=== PATIENT | female | born 1955 | race Caucasian/White ===

== ENCOUNTER 2016-09-05 10:49 | Emergency (ER) | payer BC ==
[2016-09-05 11:35] VITALS: BP 146/92
--- NOTE | 2016-09-05 11:45 | UC ---
Complaint Female HPI - HPI Summary HPI Summary: 61 yo female with dysuria and urgency and frequency x 2 days no f/c no back or abd pain no n/v - History Of Current Complaint Chief Complaint: UCGU Stated Complaint: CLOUDY URINE Time Seen by Provider: 09/05/16 11:44 Hx Last Menstrual Period: NA Onset/Duration: Gradual Onset, Lasting Days Timing: Intermittent, Lasting Seconds Severity Initially: Mild Severity Currently: None Pain Intensity: 0 Pain Scale Used: 0-10 Numeric Character: Burning Aggravating Factor(s): Urination Associated Signs And Symptoms: Negative: Fever, Back Pain, Vaginal Bleeding/ Discharge, Vaginal Discharge, Nausea, Vomiting(# Of Episodes =), Genital Swelling, Genital Blisters, Retained Foregin Body (Specify) Related Hx: Similar Episode/Dx as: - uti - Allergies/Home Medications Allergies/Adverse Reactions: Allergies Allergy/AdvReac Type Severity Reaction Status Date / Time No Known Allergies Allergy Verified 07/23/15 15:13 PMH/Surg Hx/FS Hx/Imm Hx Previously Healthy: Yes Cancer History Of: Denies: Breast Cancer - Surgical History Surgical History: None - Family History Known Family History: Positive: Blood Disorder - anemia Negative: Cardiac Disease, Hypertension, Diabetes - Social History Alcohol Use: None Substance Use Type: None Smoking Status (MU): Never Smoked Tobacco Review of Systems Constitutional: Negative Skin: Negative Eyes: Negative ENT: Negative Respiratory: Negative Cardiovascular: Negative Gastrointestinal: Negative Genitourinary: Dysuria, Frequency, Urgency Motor: Negative Neurovascular: Negative Musculoskeletal: Negative Neurological: Negative Psychological: Negative All Other Systems Reviewed And Are Negative: Yes Physical Exam Triage Information Reviewed: Yes Appearance: Well-Appearing, No Pain Distress, Well-Nourished Vital Signs: Initial Vital Signs Temp 98.2 F 09/05/16 11:33 Pulse 78 09/05/16 11:33 Resp 16 09/05/16 11:33 BP 146/92 09/05/16 11:33 Pulse Ox 100 09/05/16 11:33 Vital Signs Reviewed: Yes Eyes: Positive: Conjunctiva Clear ENT: Positive: Hearing grossly normal. Negative: Nasal congestion, Nasal drainage, Tonsillar exudate, Trismus, Muffled/hoarse voice Neck: Positive: Supple, Nontender Respiratory: Positive: Lungs clear, Normal breath sounds, No respiratory distress Cardiovascular: Positive: RRR, No Murmur Abdomen Description: Positive: Nontender, No Organomegaly, Soft. Negative: CVA Tenderness (R), CVA Tenderness (L) Bowel Sounds: Positive: Present Musculoskeletal: Positive: ROM Intact, No Edema Neurological: Positive: Muscle Tone Normal Psychological Exam: Normal Skin Exam: Normal Complaint Female Dx - Differential Dx/Diagnosis Provider Diagnoses: acute cysitis Discharge - Discharge Plan Condition: Stable Disposition: HOME Prescriptions: Sulfamethox/Trimethoprim DS* [Bactrim DS 800/160 TAB*] 1 tab PO BID #14 tab Patient Education Materials: Urinary Tract Infection in Women (ED) Referrals: Thelma Fierro MD [Primary Care Provider] - If Needed (I suggest follow up in a few weeks to discuss your frequent UTIs) Additional Instructions: recheck for fever/back pain vomiting recheck in 3-4 days if not better urine culture pending
== END 2016-09-05 12:13 | disposition home or self-care (01) ==
LOC: UCEAST 10:49
DX: N30.00 Acute cystitis without hematuria (principal)
CPT/HCPCS: 81003; 87077; 87086; 87185; 87186; 99212; G0463

== ENCOUNTER 2019-06-21 11:53 | Emergency (ER) | payer BC ==
--- OUTSIDE RECORDS SUMMARY | 2019-06-21 11:58 | XMS REPORT | Continuity of Care Document ---
:1955 External Reference #:[id number] Author Name Dereje Ceron MD (transmitted by agent of provider Cecile Grady) Address [address] [place] [id number] Care Team Providers Name Role Phone Rachel Jane NP - Family Care Team Information Focusing Machine Operator [phone] Thelma Fierro MD - Internal Care Team Information Focusing Machine Operator Medicine Problems Active Problems Provider Date Localized, primary osteoarthritis Dulce Maria Aaron M.D. Onset: 10/11/2018 Social History Type Date Description Comments Sex Unknown ETOH Use Currently consumes 1 - 2 glasses of wine alcohol per week Tobacco Use Start: Unknown Patient has never smoked Smoking Status Reviewed: 05/03/19 Patient has never smoked Exercise Exercises regularly Walks when she can Type/Frequency Allergies, Adverse Reactions, Alerts Description No Known Drug Allergies Medications Active Medications SIG Qnty Indications Ordering Provider Date Compression Stockings 1units M25.Chantelle Aaron M.D. 10/11/2018 Misc Meloxicam take 1 tab by 14tabs Alberto Aaron M.D. 10/11/2018 15mg Tablets mouth with food once a day Ferrex 150 1 by mouth Unknown 150mg Capsules every other day Miralax 17 grams by Unknown Powder mouth every other day Centrum Silver Unknown Medications Administered in Office Medication SIG Qnty Indications Ordering Provider Date Depomedrol 40MG Dulce Maria Aaron M.D. 10/11/2018 Injection Depomedrol 40MG Dulce Maria Aaron M.D. 11/12/2015 Injection Immunizations CPT Code Status Date Vaccine Reaction Lot # [id number] Given 04/02/2016 Zoster (Zostavax) no reaction noted ... [id number] Vital Signs Date Vital Result Comment 05/03/2019 9:36am Height 66 inches 5'6" Weight 134.75 lb Heart Rate 74 /min BP Systolic 110 mmHg BP Diastolic 74 mmHg Respiratory Rate 16 /min Pain Level 2 BMI (Body Mass Index) 21.7 kg/m2 04/20/2019 4:05pm Height 66 inches 5'6" Weight 134.00 lb Heart Rate 73 /min BP Systolic 113 mmHg BP Diastolic 74 mmHg O2 % BldC Oximetry 98 % BMI (Body Mass Index) 21.6 kg/m2 Results Test Acquired Date Facility Test Result H/L Range Note Lipid Profile 04/14/2019 [facility] Triglycerides 51 mg/dL 1 (Trig/Chol/HDL) [address] [place] [address] [phone] Cholesterol 202 mg/dL 2 HDL Cholesterol 96.9 mg/dL 3 LDL Cholesterol 95 mg/dL 4 Comp Metabolic Panel 04/14/2019 [facility] Sodium 131 mmol/L Low 135-[address] [place] [address] [phone] Potassium 4.4 mmol/L Normal 3.5-5.0 Chloride 95 mmol/L Low 101-111 Co2 Carbon Dioxide 30 mmol/L Normal 22-32 Anion Gap 6 mmol/L Normal 2-11 Glucose 86 mg/dL Normal 70-100 Blood Urea Nitrogen 9 mg/dL Normal 6-24 Creatinine 0.75 mg/dL Normal 0.51-0.95 BUN/Creatinine Ratio 12.0 Normal 8-20 Calcium 9.5 mg/dL Normal 8.6-10.3 Total Protein 6.6 g/dL Normal 6.4-8.9 Albumin 4.1 g/dL Normal 3.2-5.2 Globulin 2.5 g/dL Normal 2-4 Albumin/Globulin Ratio 1.6 Normal 1-3 Total Bilirubin 1.00 mg/dL Normal 0.2-1.0 Alkaline Phosphatase 49 U/L Normal 34-104 Alt 16 U/L Normal 7-52 Ast 20 U/L Normal 13-39 Egfr Non- 78.0 >60 Egfr 94.4 >60 5 CBC Auto 04/14/2019 [facility] White Blood 7.8 10^3/uL Normal 3.5-10.[address] [place] [address] [phone] Red Blood Count 4.30 10^6/uL Normal 3.70-4.87 Hemoglobin 12.9 g/dL Normal 12.0-16.0 Hematocrit 38 % Normal 35-47 Mean Corpuscular Volume 89 fL Normal 80-97 Mean Corpuscular Hemoglobin 30 pg Normal 27-31 Mean Corpuscular HGB Conc 34 g/dL Normal 31-36 Red Cell Distribution Width 13 % Normal 10-15 Platelet Count 269 10^3/uL Normal 150-450 Mean Platelet Volume 8.5 fL Normal 7.4-10.4 Abs Neutrophils 5.9 10^3/uL Normal 1.5-7.7 Abs Lymphocytes 0.8 10^3/uL Low 1.0-4.8 Abs Monocytes 1.0 10^3/uL High 0-0.8 Abs Eosinophils 0.0 10^3/uL Normal 0-0.6 Abs Basophils 0.0 10^3/uL Normal 0-0.2 Abs Nucleated RBC 0.0 10^3/uL Granulocyte % 75.7 % Lymphocyte % 10.7 % Monocyte % 12.7 % Eosinophil % 0.6 % Basophil % 0.3 % Nucleated Red Blood Cells % 0.0 Laboratory 04/14/2019 [facility] Ferritin 52.4 Normal 11-307 test finding [address] ng/mL [place], [place] [id number] [phone] Leukemia/Lymph 02/08/2019 [facility] Path (SEE 6 ayse Flow [address] Interpretation 2-8 NOTE) [place] [address] Marker [phone] Path Interpret 9-15 Marker TNP Path Interpret > 16 Marker TNP Laboratory test 01/18/2019 [facility] Direct NEGATIVE [address] [place] [address] [phone] CBC Auto Diff 01/18/2019 [facility] White Blood 3.8 10^3/uL Normal 3.5-[address] Count 0.8 [place] [address] [phone] Red Blood Count 4.55 10^6/uL Normal 3.70-4.87 Hemoglobin 13.2 g/dL Normal 12.0-16.0 Hematocrit 40 % Normal 35-47 Mean Corpuscular Volume 87 fL Normal 80-97 Mean Corpuscular Hemoglobin 29 pg Normal 27-31 Mean Corpuscular HGB Conc 33 g/dL Normal 31-36 Red Cell Distribution Width 14 % Normal 10-15 Platelet Count 299 10^3/uL Normal 150-450 Mean Platelet Volume 8.4 fL Normal 7.4-10.4 Abs Neutrophils 2.2 10^3/uL Normal 1.5-7.7 Abs Lymphocytes 1.0 10^3/uL Normal 1.0-4.8 Abs Monocytes 0.4 10^3/uL Normal 0-0.8 Abs Eosinophils 0.2 10^3/uL Normal 0-0.6 Abs Basophils 0.0 10^3/uL Normal 0-0.2 Abs Nucleated RBC 0.0 10^3/uL Granulocyte % 58.4 % Lymphocyte % 25.3 % Monocyte % 11.2 % Eosinophil % 4.1 % Basophil % 1.0 % Nucleated Red Blood Cells % 0.0 Laboratory test 01/18/2019 [facility] LDH 172 U/L Normal 140- 271 [address] [place], [place] [id number] [phone] Iron & Iron Binding 01/18/2019 [facility] Iron 64 g/dL Normal 50-[address] [place] [phone] Unsaturated Iron Binding < 356 g/dL Total Iron Binding Capacity 371 g/dL Normal 250-450 Transferrin 265 mg/dL Normal 203-362 % Iron Saturation 17 % Normal 15-55 Laboratory test 01/18/2019 [facility] Ferritin 9.0 ng/mL Low 11-307 finding [address] [place], [place] [id number] [phone] Hepatitis C 01/18/2019 [facility] HCV Index 0.02 s/c Antibody [address] [place] [address] [phone] Hepatitis C Antibody Negative Negative Laboratory test 01/18/2019 [facility] Haptoglobin 101 mg/dL 30 - 200 [address] [place] [address] [phone] Cold Agglutinin Screen/Titer >1:512 titer <1:64 9 Cryoglobulin & 01/18/2019 [facility] Cryoglobulin Negative Negative 10 Cryofibrinogen [address] [facility] %[place] [address] [phone] Cryofibrinogen Negative Negative 11 Basic Metabolic 12/09/2018 [facility] Sodium 131 mmol/L Low 135-[address] [place] [address] [phone] Potassium 4.3 mmol/L Normal 3.5-5.0 Chloride 98 mmol/L Low 101-111 Co2 Carbon Dioxide 27 mmol/L Normal 22-32 Anion Gap 6 mmol/L Normal 2-11 Calcium 9.4 mg/dL Normal 8.6-10.3 Glucose 70 mg/dL Normal 70-100 Blood Urea Nitrogen 7 mg/dL Normal 6-24 Creatinine 0.77 mg/dL Normal 0.51-0.95 BUN/Creatinine Ratio 9.1 Normal 8-20 Egfr Non- 76.0 >60 Egfr 91.9 >60 12 1 Desirable: <150 Borderline High: 150-199 High: 200-499 Very High: >500 2 Desirable: <200 Borderline High: 200-239 High: >239 3 Low: <40 Desirable: 40-60 High: >60 4 Desirable: <100 Near Optimal: 100-129 Borderline High: 130-159 High: 160-189 Very High: >189 5 Because ethnic data is not always readily available, this report includes an eGFR for both -Americans and non- Americans. The National Kidney Disease Education Program (NKDEP) does not endorse the use of the MDRD equation for patients that are not between the ages of 18 and 70, are , have extremes of body size, muscle mass, or nutritional status, or are non- or non-. According to the National Kidney Foundation, irrespective of diagnosis, the stage of the disease is based on the level of kidney function: Stage Description GFR(mL/min/1.73 m(2)) 1 Kidney damage with normal or decreased GFR 90 2 Kidney damage with mild decrease in GFR 60-89 3 Moderate decrease in GFR 30-59 4 Severe decrease in GFR 15-29 5 Kidney failure <15 (or dialysis) 6 FINAL DIAGNOSIS: Specimen Source: Peripheral blood Flow cytometry immunophenotypic analysis: Interpretative data: Blasts: 0% Lymphocytes: 36% B-cells: 11% lymphocytes with no evidence of light chain restriction or other immunophenotypic abnormality. T-cells/NK cells: No aberrant population detected. Markers tested: CD3, CD10, CD16, CD19, CD34, CD45, kappa surface light chains, lambda surface light chains, 7-AAD. Quality Assessment: Acceptable Viability: Acceptable Viable lymphocytes (7-AAD):96% Specimen received within validated guidelines. A Edmond-Giemsa stained slide prepared from the flow cytometry specimen was examined for quality purposes. Electronically signed by: Tico Barreto MD 02/10/19 1600 Technical component performed by: [place] [address] Ferryboat Pilot: Teddy Hoyt II, MD, PhD. 7 OV/LAB 8 Test Performed by: [place] [address] 9 Test Performed by: [place] [address] 10 This test is negative at 24 hours. All samples are held and reviewed again at 7 days. If delayed precipitation occurs after 7 days, Immunofixation will be performed and an additional report will follow. 11 Test Performed by: [place] [address] 12 Because ethnic data is not always readily available, this report includes an eGFR for both -Americans and non- Americans. The National Kidney Disease Education Program (NKDEP) does not endorse the use of the MDRD equation for patients that are not between the ages of 18 and 70, are , have extremes of body size, muscle mass, or nutritional status, or are non- or non-. According to the National Kidney Foundation, irrespective of diagnosis, the stage of the disease is based on the level of kidney function: Stage Description GFR(mL/min/1.73 m(2)) 1 Kidney damage with normal or decreased GFR 90 2 Kidney damage with mild decrease in GFR 60-89 3 Moderate decrease in GFR 30-59 4 Severe decrease in GFR 15-29 5 Kidney failure <15 (or dialysis) Procedures Date Code Description Status 07/29/2018 [id number] Mammogram Completed 07/17/2017 [id number] Mammogram Completed 06/26/2016 [id number] Mammogram Completed 11/14/2015 [id number] Bone Mineral Density Test Completed 06/25/2015 [id number] Mammogram Completed 06/21/2014 [id number] Mammogram Completed 12/21/2013 [id number] Bone Mineral Density Test Completed 06/20/2013 [id number] Mammogram Completed 06/10/2012 [id number] Mammogram Completed 06/26/2011 [id number] Colonoscopy Completed 06/05/2011 [id number] Mammogram Completed Medical Devices Description No Information Available Encounters Type Date Location Provider Dx Diagnosis Office Visit 05/03/2019 [facility] Dereje Ceron, M19.042 Primary 9:00a at [place] osteoarthritis, left hand Office Visit 04/20/2019 [facility] Rachel Jane, Z00.00 Encntr for 3:40p Medicine - [facility] 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 examination without abnormal findings 04/20/2019 M20.002 Unspecified deformity of left finger(s) Rachel Jane, N.P. 04/20/2019 G47.00 Insomnia, unspecified Rachel Varn, N.P. 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 Plan of Treatment Future Appointment(s):05/09/2020 8:40 am - Rachel Jane N.P. at [facility] - [facility]05/03/2019 - Dereje Ceron MDM19.042 Primary osteoarthritis, left handFollow up:Follow up: will call when needs additional treatment Functional Status Description No Information Available Mental Status Description No Information Available Referrals Refer to Dr Reason for Referral Status Appt Date Dereje Ceron MD Patient with left thumb deformity just Scheduled 2018 occurred over the past 2 weeks. Referred for evaluation. Thank you for seeing this pleasant patient. [address] [place] [address] [phone]
[2019-06-21 12:15] VITALS: BP 131/87
--- NOTE | 2019-06-21 12:18 | UC ---
UC General HPI - HPI Summary HPI Summary: 64 yo female c/o progressive worse cough, congestion, sinus pain. Pain radiates to the Right side of her face. Doesn't usually get sick. Reports that temp 99+ is high for her. cough productive. No rash. no cp / sob (except with cough). No GI issues reported. Hydrating ok. - History of Current Complaint Chief Complaint: UCGeneralIllness Stated Complaint: SORE THROAT, AND EAR ACHE Time Seen by Provider: 06/21/19 12:17 Hx Last Menstrual Period: NA Pain Intensity: 6 - Allergy/Home Medications Allergies/Adverse Reactions: Allergies Allergy/AdvReac Type Severity Reaction Status Date / Time No Known Allergies Allergy Verified 06/21/19 12:15 PMH/Surg Hx/FS Hx/Imm Hx Previously Healthy: Yes - Surgical History Surgical History: None - Family History Known Family History: Positive: None, Blood Disorder - anemia Negative: Cardiac Disease, Hypertension, Diabetes - Social History Alcohol Use: None Substance Use Type: None Smoking Status (MU): Never Smoked Tobacco Review of Systems All Other Systems Reviewed And Are Negative: Yes Constitutional: Positive: Fatigue, Other - see hpi Skin: Positive: Negative Eyes: Positive: Negative ENT: Positive: Sore Throat, Nasal Discharge, Sinus Congestion, Sinus Pain/ Tenderness, Other - see hpi Respiratory: Positive: Cough Cardiovascular: Positive: Negative Gastrointestinal: Positive: Negative Genitourinary: Positive: Negative Motor: Positive: Negative Neurovascular: Positive: Negative Musculoskeletal: Positive: Negative Neurological: Positive: Negative Psychological: Positive: Negative Is Patient Immunocompromised?: No Physical Exam Triage Information Reviewed: Yes Appearance: Well-Nourished - sitting up, looks tired, but nad Vital Signs: Initial Vital Signs Temp 99.2 F 06/21/19 12:12 Pulse 110 06/21/19 12:12 Resp 20 06/21/19 12:12 BP 131/87 06/21/19 12:12 Pulse Ox 100 06/21/19 12:12 Vital Signs Reviewed: Yes Eye Exam: Normal ENT: Positive: Pharyngeal erythema - mild post pharyng redness, no sores / exudates. uvula midline., Nasal congestion, TM dull - L TM dull, [place]. R TM ok. Neck exam: Normal Neck: Positive: Supple, Nontender, No Lymphadenopathy Respiratory Exam: Other - + bilat rhonchi, course breath sounds. No rtx, no distress. + rhonchorus cough. Respiratory: Positive: No respiratory distress, No accessory muscle use Cardiovascular Exam: Other - HR 110, regular, correlates with radial pulse. Cardiovascular: Positive: Pulses Normal, Brisk Capillary Refill Abdominal Exam: Normal Abdomen Description: Positive: Nontender Musculoskeletal Exam: Normal - gait steady, moves x 4 ext's Neurological Exam: Normal - grossly nonfocal Psychological Exam: Normal - nad Skin Exam: Normal - nondiaphoretic. no visible or reported rash. Course/Dx - Course Course Of Treatment: bp 131 / 97, reviewed with pt. She reports that this is unusual, attributes to feeling sick. HR increased, grossly regular, c/w illness. Influenza negative CXR nad. reviewed report with pt. Reviewed coa / tx plan with Ms. Walden. Questions as posed answered to the best of my ability. - Diagnoses Provider Diagnosis: Sinusitis, Acute bronchitis Discharge ED - Sign-Out/Discharge Documenting (check all that apply): Patient Departure All imaging exams completed and their final reports reviewed: Yes - Discharge Plan Condition: Stable Disposition: HOME Prescriptions: Azithromyxin MEÑO (NF) [Z-Meño (Zithromax) 250 mg tabs #6] 2 tab PO .TODAY, THEN 1 DAILY #6 tab Benzonatate CAP* [Tessalon 100 MG CAP*] 100 mg PO TID PRN #30 cap PRN Reason: Cough Patient Education Materials: Sinusitis (ED), Acute Bronchitis (ED) Referrals: Thelma Fierro MD [Primary Care Provider] - - Billing Disposition and Condition Condition: STABLE Disposition: Home
[2019-06-21 12:55] LABS: Influenza A Molecular NEGATIVE (Negative); Influenza B Molecular NEGATIVE (Negative)
== END 2019-06-21 13:31 | disposition home or self-care (01) ==
LOC: UCEAST 11:53
DX: R05 Cough (principal); R09.81 Nasal congestion; R09.89 Other specified symptoms and signs involving the circulatory and respiratory systems; R51 Headache; R53.83 Other fatigue
CPT/HCPCS: 71046; 99212; G0463

== ENCOUNTER 2023-10-30 16:08 | Observation (INO) ==
[2023-10-30] MEDS ORDERED: Cefepime 2 GM in NS 0.9% 50 ML 50 ML IVPB ONE (16:36)
[2023-10-30] MEDS: Lactated Ringers SEPSIS* BAG 1,770 ML IV ONE (16:48)
[2023-10-30] MEDS: Cefepime 2 GM IV - ED ONCE IV ONE (16:49)
[2023-10-30 16:55] LABS: ABS Lymphocytes 0.3 10^3/uL (1.0-4.8); ABS Monocytes 0.4 10^3/uL (0.0-0.9); ABS Neutrophils 6.1 10^3/uL (1.5-7.6); Eosinophil % 0.3 %; Hematocrit 33.1 % (35-45); Hemoglobin 11.5 g/dL (11.5-14.3); Lymphocyte % 4.3 %; Mean Corpuscular Hemoglobin 30.2 pg (27-33); Mean Corpuscular Hgb Conc 34.7 g/dL (31-36); Mean Corpuscular Volume 87.1 fL (80-97); Mean Platelet Volume 7.1 fL (7.5-11.2); Platelet Count 319 10^3/uL (150-450); Red Cell Distribution Width 12.7 % (12-17); White Blood Count 6.8 10^3/uL (3.8-11.8)
[2023-10-30 17:05] LABS: Activated Partial Thrombo Time 29.8 seconds (26.0-38.0); INR 1.15 (0.83-1.13)
[2023-10-30 17:07] LABS: Albumin 4.1 g/dL (3.2-5.2); Albumin/Globulin Ratio 1.6 (1-3); C Reactive Protein 22.74 mg/L (<8.01); Calcium 8.9 mg/dL (8.6-10.3); Globulin 2.6 g/dL (2-4); Potassium 3.9 mmol/L (3.5-5.0); Total Bilirubin 0.5 mg/dL (0.2-1.0); Total Protein 6.7 g/dL (6.4-8.9)
[2023-10-30 17:13] LABS: Urine Appearance Clear; Urine Bilirubin Negative (Negative); Urine Blood Trace (Negative); Urine Color Light-Yellow; Urine Glucose Negative (Negative); Urine Ketones 1+ (Negative); Urine Nitrite Negative (Negative); Urine Protein Negative (Negative); Urine Urobilinogen Negative (Negative)
[2023-10-30 18:02] LABS: Creatinine, Serum 0.75 mg/dL (0.51-0.95); eGFR CKD-EPI 87.2 (>60)
[2023-10-30 18:13] LABS: High Sensitivity Troponin 1 Hr 3 pg/mL (<15)
[2023-10-30] MEDS: Iohexol 350 (CONTRAST) 500 ML MDV IV ONE (20:35)
[2023-10-30] MEDS: NS 0.9% 1000 ml BAG 1,000 ML IV SCH (20:58)
[2023-10-30] MEDS: Enoxaparin 40 MG/0.4 ML SYR SUBCUT SCH (21:05)
[2023-10-30] MEDS: Polyethylene Glycol 3350 17 GM PACKET PO SCH (21:05)
[2023-10-31] MEDS: Cefepime 2 GM in Dextrose 2 GM/50 ML BAG IV SCH (06:16)
[2023-10-31 06:41] LABS: ABS Lymphocytes 0.2 10^3/uL (1.0-4.8); ABS Monocytes 0.2 10^3/uL (0.0-0.9); ABS Neutrophils 2.5 10^3/uL (1.5-7.6); ABS Nucleated RBC 0.01 10^3/ul; Eosinophil % 0.4 %; Hematocrit 30.9 % (35-45); Hemoglobin 10.7 g/dL (11.5-14.3); Lymphocyte % 7.7 %; Mean Corpuscular Hemoglobin 30.1 pg (27-33); Mean Corpuscular Hgb Conc 34.7 g/dL (31-36); Mean Corpuscular Volume 86.7 fL (80-97); Mean Platelet Volume 6.9 fL (7.5-11.2); Nucleated Red Blood Cells % 0.2 %/100WBC (0.0-0.8); Platelet Count 257 10^3/uL (150-450); Red Blood Count 3.56 10^6/uL (3.63-4.92); White Blood Count 2.9 10^3/uL (3.8-11.8)
[2023-10-31 06:53] LABS: Albumin 3.4 g/dL (3.2-5.2); Albumin/Globulin Ratio 1.6 (1-3); Creatinine, Serum 0.64 mg/dL (0.51-0.95); Globulin 2.1 g/dL (2-4); Phosphorus 3.3 mg/dL (2.5-5.0); Potassium 3.8 mmol/L (3.5-5.0); Total Bilirubin 0.3 mg/dL (0.2-1.0); Total Protein 5.5 g/dL (6.4-8.9); eGFR CKD-EPI 96.8 (>60)
[2023-10-31] MEDS: Amoxicillin/Clavul 500/125 TAB (Augmentin 500 mg tab) PO SCH (20:59)
[2023-11-01 12:23] LABS: ABS Lymphocytes 0.3 10^3/uL (1.0-4.8); ABS Monocytes 0.4 10^3/uL (0.0-0.9); ABS Neutrophils 3.6 10^3/uL (1.5-7.6); Eosinophil % 0.5 %; Hematocrit 31.7 % (35-45); Hemoglobin 11.1 g/dL (11.5-14.3); Lymphocyte % 6.2 %; Mean Corpuscular Volume 85.6 fL (80-97); Mean Platelet Volume 6.9 fL (7.5-11.2); Nucleated Red Blood Cells % 0.1 %/100WBC (0.0-0.8); Platelet Count 285 10^3/uL (150-450); Red Cell Distribution Width 12.9 % (12-17); White Blood Count 4.3 10^3/uL (3.8-11.8)
[2023-11-01 14:03] VITALS: BP 116/81
[2023-11-01] MEDS ORDERED: Amoxicillin/Clavul 875/125 TAB (Augmentin 875 tab) PO SCH (21:00)
== END 2023-11-01 18:15 | disposition home or self-care (01) ==
LOC: EDHOLD 16:08 → ED 16:08 → SUATTDRO 18:49 → MED 20:17
PROVIDERS: ADMIT Internal Medicine; ATTEND Hospitalist